=== PATIENT | female | born 1970 | race Caucasian/White ===

== ENCOUNTER 2020-11-10 15:02 | Outpatient (CLI) | payer OTHER, SELFPAY ==
--- NOTE | ~2020-11-10 | MM_ITS ---
EXAMINATION: MM screening [facility] BI w beck HISTORY: Screening TECHNIQUE: Craniocaudal and mediolateral oblique 3-D tomosynthesis images were obtained and synthetic 2-D images were generated. CAD analysis was submitted and interpreted. COMPARISON: Comparison to multiple prior studies sequentially, with oldest reviewed study dated 03/2015. BREAST PARENCHYMAL COMPOSITION: The breasts are extremely dense, which lowers the sensitivity of mamm ography. FINDINGS: There is a 1.4 cm new mass in the outer aspect of the left breast, best seen on CC tomograp hic image 23. The right breast is stable without evidence for malignancy. IMPRESSION: 1. New left breast mass, upper outer quadrant, measuring 1.4 cm. 2. Additional mammographic views and possible breast ultrasound are recommended. BI-RADS Category 0: Incomplete: Needs additional imaging evaluation. Reviewed, dictated and finalized at location A. KEN FANCIER IMPRESSION: 1. New left breast mass, upper outer quadrant, measuring 1.4 cm. 2. Additional mammographic views and possible breast ultrasound are recommended . BI-RADS Category 0: Incomplete: Needs additional imaging evaluation.
== END 2020-11-10 15:03 | disposition home or self-care (01) ==
LOC: ANHIMG 15:06
PROVIDERS: Visit Provider Physician Assistant
DX: Z12.31 Encounter for screening mammogram for malignant neoplasm of breast (principal); R92.8 Other abnormal and inconclusive findings on diagnostic imaging of breast
CPT/HCPCS: 77063; 77067

== ENCOUNTER 2021-01-09 11:48 | Outpatient (CLI) | payer OTHER, SELFPAY ==
--- NOTE | ~2021-01-09 | MMUS_ITS ---
EXAMINATION: MM diagnostic mammo unilat LT, US breast LT limited HISTORY: Left breast mass on screening mammogram TECHNIQUE: Additional 3-D tomosynthesis images of the left breast were performed and synthetic 2-D im ages were generated. CAD analysis was submitted and interpreted. High resolution limited left breast ultrasound was performed. COMPARISON: 11/10/2020, 07/02/2019, 06/02/2018 BREAST PARENCHYMAL COMPOSITION: The breasts are heterogeneously dense, which may obscure small masses . FINDINGS: MAMMOGRAPHIC FINDINGS: There is an obscured 1.2 cm low-density mass in the middle third of the outer breast at the 3:00 loca tion 3.5 cm from the nipple. ULTRASOUND: There is a 1.3 cm cyst at the 1:00 location 3 cm from the nipple corresponding to the mammographic fi nding in question. There is an adjacent 5 mm round, circumscribed, hypoechoic mass with posterior aco ustic enhancement at the 2:00 location 3 cm from the nipple. Similar appearing masses are present at the 2:00 location 4 cm from the nipple in the 3:00 location 3 cm from the nipple. IMPRESSION: 1. Simple cyst of left breast corresponding to the finding in question on recent screening mammogram. Additional probably benign masses are noted in the upper outer quadrant of the breast. 2. Recommend 6 month follow-up left diagnostic mammogram and ultrasound. BI-RADS category 3, probably benign findings. Reviewed, dictated and finalized at location A. IMPRESSION: 1. Simple cyst of left breast corresponding to the finding in question on recen t screening mammogram. Additional probably benign masses are noted in the upper outer quadrant of the breast. 2. Recommend 6 month follow-up left diagnostic mammogram and ultrasound. BI-RADS category 3, probably benign findings.
== END 2021-01-09 11:49 | disposition home or self-care (01) ==
LOC: ANHIMG 11:50
PROVIDERS: PCP Physician Assistant; Visit Provider Physician Assistant
DX: R92.8 Other abnormal and inconclusive findings on diagnostic imaging of breast (principal)
CPT/HCPCS: 76642; 77065

== ENCOUNTER 2021-10-12 13:35 | Outpatient (CLI) | payer OTHER, SELFPAY ==
--- NOTE | ~2021-10-12 | MMUS_ITS ---
EXAMINATION: MM diagnostic papa LT w beck, US breast LT limited HISTORY: Six-month follow-up TECHNIQUE: Additional 3-D tomosynthesis images of the left breast were performed and synthetic 2-D im ages were generated. CAD analysis was submitted and interpreted. High resolution Limited left breast ultrasound was performed. COMPARISON: Comparison to multiple prior studies sequentially, with oldest reviewed study dated 05/23. BREAST PARENCHYMAL COMPOSITION: The breasts are extremely dense, which lowers the sensitivity of mamm ography FINDINGS: MAMMOGRAPHIC FINDINGS: There are no suspicious masses, calcifications or architectural distortion in the left breast to sugg est malignancy. ULTRASOUND: Limited left breast ultrasound: At 1:00 near the nipple there is a 5 mm oval hypoechoic mass with enh anced through transmission and no internal vascularity, stable. At 1:00, 2 cm from the nipple, there is an oval hypoechoic mass measuring 5 mm without significant posterior features or internal vascular ity, stable. At 1:00, 3 cm from the nipple there is a stable 4 mm hypoechoic mass with similar featur es. At 2:00, 2 cm from the nipple there is a 4 mm oval hypoechoic mass is stable. At 3:00, 2 cm from the nipple there is a 2 mm cyst. At 3:00, 3 cm from the nipple there is a 4 mm cyst. IMPRESSION: 1. Stable likely benign left breast masses. 2. Recommend 6 month follow-up left breast ultrasound and bilateral mammogram. BI-RADS category 3, probably benign findings. Reviewed, dictated and finalized at location A. [employer] IMPRESSION: 1. Stable likely benign left breast masses. 2. Recommend 6 month follow-up left breast ultrasound and bilateral mammogram. BI-RADS category 3, probably benign findings.
== END 2021-10-12 13:36 | disposition home or self-care (01) ==
PROVIDERS: PCP Physician Assistant; Visit Provider Physician Assistant
DX: R92.8 Other abnormal and inconclusive findings on diagnostic imaging of breast (principal)
CPT/HCPCS: 76642; 77061; 77065; G0279

== ENCOUNTER 2022-12-17 14:00 | Outpatient (CLI) | payer OTHER, SELFPAY ==
--- NOTE | ~2022-12-17 | MM_ITS ---
EXAMINATION: MM screening [facility] BI w beck HISTORY: Screening TECHNIQUE: Craniocaudal and mediolateral oblique 3-D tomosynthesis images were obtained and synthetic 2-D images were generated. CAD analysis was submitted and interpreted. COMPARISON: Comparison to multiple prior studies sequentially, with oldest reviewed study dated 05/23. BREAST PARENCHYMAL COMPOSITION: The breasts are extremely dense, which lowers the sensitivity of mamm ography FINDINGS: There are scattered benign bilateral breast calcifications. There is no evidence of suspici ous mass, calcification, or architectural distortion to suggest malignancy in either breast. There denis s been no suspicious interval change. IMPRESSION: 1. No mammographic evidence of malignancy. 2. Recommend routine screening mammography in one year. BI-RADS Category 2: Benign finding(s). Reviewed, dictated and finalized at location A.
== END 2022-12-17 14:01 | disposition home or self-care (01) ==
LOC: ANHIMG 14:02
PROVIDERS: PCP Physician Assistant; Visit Provider Physician Assistant
DX: Z12.31 Encounter for screening mammogram for malignant neoplasm of breast (principal)
CPT/HCPCS: 77063; 77067

== ENCOUNTER 2023-12-12 14:50 | Outpatient (CLI) | payer BC, SELFPAY ==
--- NOTE | ~2023-12-12 | MM_ITS ---
EXAMINATION: MM screening papa BI w beck HISTORY: Screening TECHNIQUE: Craniocaudal and mediolateral oblique 3-D tomosynthesis images were obtained and synthetic 2-D images were generated. CAD analysis was submitted and interpreted. COMPARISON: Comparison to multiple prior studies sequentially, with oldest reviewed study dated 06/02. BREAST PARENCHYMAL COMPOSITION: Dense: The breasts are extremely dense, which lowers the sensitivity of mammography. FINDINGS: There is no evidence of suspicious mass, calcification, or architectural distortion to sugg est malignancy in either breast. There has been no suspicious interval change. IMPRESSION: 1. No mammographic evidence of malignancy. 2. Recommend routine screening mammography in one year. BI-RADS Category 1: Negative Reviewed, dictated and finalized at location A.
== END 2023-12-12 14:51 | disposition home or self-care (01) ==
PROVIDERS: PCP Physician Assistant; Visit Provider Physician Assistant
DX: Z12.31 Encounter for screening mammogram for malignant neoplasm of breast (principal)
CPT/HCPCS: 77063; 77067

== ENCOUNTER 2025-04-15 15:02 | Outpatient (CLI) | payer BC, SELFPAY ==
--- NOTE | ~2025-04-15 | MM_ITS ---
EXAMINATION: MM screening papa BI w beck HISTORY: Screening TECHNIQUE: Craniocaudal and mediolateral oblique 3-D tomosynthesis images were obtained and synthetic 2-D images were generated. CAD analysis was submitted and interpreted. COMPARISON: Comparison to multiple prior studies sequentially, with oldest reviewed study dated 11/10. BREAST PARENCHYMAL COMPOSITION: The breasts are extremely dense, which lowers the sensitivity of mamm ography. FINDINGS: There is no evidence of suspicious mass, calcification, or architectural distortion to sug gest malignancy in either breast. Scattered benign-appearing calcifications are present. IMPRESSION: 1. No mammographic evidence of malignancy. 2. Recommend routine screening mammography in one year. BI-RADS Category 2: Benign finding(s). Reviewed, dictated and finalized at location B.
--- OUTSIDE RECORDS SUMMARY | 2025-04-15 15:07 | XMS_ITS | Clinical Summary ---
Author Organization [facility] Address [facility] [place] [address] Care Team Providers Care Health Communications Specialist Name Role Phone Neela Jimenez Primary Care Provider [phone] Allergies No known active allergies Medications Multiple Vitamin (MULTIVITAMIN) capsule Take 1 capsule by mouth daily. Active Cyanocobalamin (VITAMIN B-12) 50 MCG Lozenge Nasal spray Act nelson amitriptyline (ELAVIL) 25 MG tabletIndicatio ns:Headache around the eyes Take 1 tablet (25 mg total) by mouth nightly at bedtime. 90 tablet 1 Active Additional Information Patient not taking.Reported on 04/12/2025 predniSONE (DELTASONE) 20 MG tabletIndicatio ns:Back pain with sciatica 2 pills once daily for 5 days then one pill daily for 5 days 15 tablet Active Active Problems Problem Noted Date Diagnosed Date Dizziness and giddiness 10/02/2021 Encounters Date Type Department Care Team Description 04/13/2025 Results Follow-Up [facility] Family & Internal Medicine - [place] [address] [place] [address] Neela Jimenez PA XR LUMB SPINE 3V 04/12/2025 3:30 PM CDT - 04/12/2025 11:59 PM CDT Hospital Encounter [facility] [address] [place] [address] Neela Jimenez PA Arrived Discharge Disposition: Home or Self Care (Routine Discharge) 04/12/2025 3:00 PM CDT Office Visit [facility] Family & Internal Medicine - [place] [address] [place] [address] Neela Jimenez PA Low Back Pain (Burning sensation to back radiates to sides of hips-weakness to legs-x 2 weeks) 04/12/2025 Travel 01/19/2025 Results Follow-Up [facility] [address] [place] [address] Neela Jimenez PA HEMOGLOBIN, GLYCOSYLATED, HEALTH FAIR WITH LIPID from Last 3 Months Immunizations Immunization Administration Dates Next Due Tdap (Generic) 03/23/2016 Family History Medical History Relation Comments Heart Disease Father Hypertension Father pneumonia Father COPD Mother Depression Mother Diabetes Mother Hypertension Mother Relation Status Comments Father Mother Alive Social History Tobacco Use Types Packs/Day Years Used Date Smoking Tobacco: Former Cigarettes Q uit: 09/23/1994 Passive Smoke Exposure: Past Smokeless Tobacco: Never Tobacco Cessation:Counseling Given: No Alcohol Use Standard Drinks/Week Comments Yes 0 (1 standard drink = 0.6 oz pur e alcohol) SOCIALLY PHQ-2 Answer Date Recorded Patient Health Questionnaire-2 Score 0 01/04/2023 Comments No Sex and Gender Information Value Date Recorded Sex Assigned at Female 10/15/2024 7:03 AM FUR VAULT ATTENDANT Legal Sex Female 8:27 PM CDT Gender Identity Not on file Sexual Orientation Not on file Last Filed Vital Signs Vital Sign Reading Time Taken Comments Blood Pressure 122/82 04/12/2025 2:55 PM CDT Pulse 82 04/12/2025 2:55 PM CDT Temperature 36.9 C (98.5 F) 04/12/2025 2:55 PM CDT Respiratory Rate 20 04/12/2025 2:55 PM CDT Oxygen Saturation 98% 04/12/2025 2:55 PM CDT Inhaled Oxygen Concentration - - Weight 56.7 kg (125 lb) 04/12/2025 2:55 PM CDT Height 161.3 cm (5' 3.5) 04/12/2025 2:55 PM CDT Body Mass Index 21.8 04/12/2025 2:55 PM CDT Plan of Treatment Health Maintenance Due Date Last Done Comments Hepatitis C 1989 Hepatitis B Vaccines (1 of 3 - 19+ 3-dose series) 1990 Pneumococcal Vaccine: 50+ Years (1 of 1 - PCV) 2021 Zoster Vaccines (1 of 2) 2021 COVID-19 Vaccine (1 - 2023- season) 2024 PHQ-2 (Physician [place]) 09/23/2024 Annual Physical 10/15/2025 10/15/2024, 08/23, 05/08/2021, Additional history exists Mammogram Screening 12/11/2025 12/12/2023, 12/17/2022, 10/12/2021, Additional history exists DTaP, Tdap and Td Vaccines (2 - Td or Tdap) 03/23/2026 03/23/2016 Cervical Cancer Screening Pap Smear (Age 30 to 64) Every 3 Years 10/15/2027 10/15/2024, 09/07/2022, 05/08/2021, Additional history exists Colorectal Cancer Screening FIT-DNA (3 Years) 11/28/2027 11/27/2024, 11/27/2024, 07/13/2021, Additional history exists Cervical Cancer Screening Pap with HPV Testing (Age 30 to 64) Every 5 Years 10/15/2029 10/15/2024, 09/07/2022, 05/08/2021, Additional history exists Cervical Cancer Screening with HPV 10/15/2029 Meningococcal B Vaccine Aged Out No l onger eligible based on patient's age to complete this topic Meningococcal Vaccine Aged Out No dangelo neris eligible based on patient's age to complete this topic RSV Immunizations Under 20 Months Aged Out No longer eligible based on patient's age to complete this topic Procedures Procedure Name Priority Date/Time Associated Diagnosis Comments XR LUMB SPINE 3V Routine 04/12/2025 4:02 PM CDT Back pain with sciatica VITAMIN D, 25 OH Routine 01/19/2025 12:1 0 AM CDT HEALTH FAIR WITH LIPID Routine 01/19/2025 12:10 AM CDT HEMOGLOBIN, GLYCOSYLATED Routine 01/19/2025 12:10 AM CDT COLOGUARD (EXACT SCIENCE) Routine 11/27/2024 8:20 AM FUR VAULT ATTENDANT Colon cancer screening THINPREP PAP W AGE BASED SCREENING PROTOCOLS Routine 10/15/2024 8:03 AM FUR VAULT ATTENDANT Cervical cancer screening MAMMOGRAM GENERIC (SCAN ORDER) 12/12/2023 from Last 3 Months or Most Recently Relevant to Health Maintenance Results * XR LUMB SPINE 3V (04/12/2025 4:02 PM CDT) Anatomical Region Laterality Modality Spine Radiographic Natasha ging 04/13/2025 8:33 AM CDT Impressions 04/13/2025 8:34 AM CDT IMPRESSION: Biconcave scoliosis is present. The curvature is greatest at the thoracolumbar junction. Ordered By: NEELA JIMENEZ Interpreted By: Gonzalo Dickinson MD, 04/13/2025 8:33 AM Narrative 04/13/2025 8:34 AM CDT [place] [address] [place] [address] Procedure(s): XR LUMB SPINE 3V Date of service: 04/12/2025 3:45 PM Provided clinical information: 55 years, Female, back pain with sciatica.burning pain down both hips. Procedure and materials: 3 views lumbar spine. Comparison studies: May 08, 2021. Findings: There is right concave scoliosis that is present involving the thoracolumbar junction and mild left concave scoliosis of lumbosacral junction. Lumbar vertebral body heights are maintained. Disc heights are relatively maintained. Slight straightening of the normal lumbar lordosis. Procedure Note Gonzalo Dickinson MD - 04/13/2025 [facility] [address] [facility] [place] [address] Procedure(s): XR LUMB SPINE 3V Date of service: 04/12/2025 3:45 PM Provided clinical information: 55 years, Female, back pain withsciatica.burning pain down both hips. Procedure and materials: 3 views lumbar spine. Comparison studies: May 08, 2021. Findings: There is right concave scoliosis that is present involving thethoracolumbar junction and mild left concave scoliosis of lumbosacraljunction. Lumbar vertebral body heights are maintained. Disc heights arerelatively maintained. Slight straightening of the normal lumbarlordosis. IMPRESSION: Biconcave scoliosis is present. The curvature is greatest at thethoracolumbar junction. Ordered By: NEELA JIMENEZ Interpreted By: Gonzalo Dickinson MD, 04/13/2025 8:33 AM Neela Jimenez [place] GENERAL IMAG[facility] Final Result * (ABNORMAL) HEALTH FAIR WITH LIPID (01/19/2025 12:10 AM CDT) WBC 4.92 4.4 - 11.0 x10'3/uL 01/19/2025 9:04 AM CDT [facility] RBC 4.88 4.50 - 5.10 x10'6/uL 01/19/2025 9:04 AM CDT [facility] HGB 14.2 12.3 - 15.3 G/DL 01/19/2025 9:04 AM CDT [facility] HCT 42.6 35.9 - 44.6 % 01/19/2025 9:04 AM CDT [facility] MCV 87.3 80.0 - 96.0 FL 01/19/2025 9:04 AM CDT [facility] MCH 29.1 25.3 - 30.9 PG 01/19/2025 9:04 AM CDT [facility] MCHC 33.3 31.0 - 34.1 G/DL 01/19/2025 9:04 AM CDT [facility] RDW 13.1 12.4 - 15.1 % 01/19/2025 9:04 AM T [facility] PLT 235 151 - 353 x10'3/uL 01/19/2025 9:04 AM [facility] MPV 9.9 9.6 - 12.0 FL 01/19/2025 9:04 AM T [facility] RBC MORPHOLOGY NORMAL 01/19/2025 9:04 AM [facility] PLT MORPH. NORMAL 01/19/2025 9:04 AM T [facility] WBC MORPHOLOGY NORMAL 01/19/2025 9:04 AM [facility] LYMPHOCYTES % 38.6 15.8 - 45.0 % 01/19/2025 9:04 AM [facility] NEUTROPHILS % 47.8 42.1 - 71.9 % 01/19/2025 9:04 AM [facility] MONOCYTES % 8.5 5.7 - 12.5 % 01/19/2025 9:04 AM [facility] EOSINOPHILS 3.7 0.0 - 5.6 % 01/19/2025 9:04 AM [facility] BASOPHILS 1.0 0.0 - 1.3 % 01/19/2025 9:04 AM [facility] ABS. NEUTROPHILS 2.35 1.40 - 6.00 x10'3/uL 01/19/2025 9:04 AM [facility] IMMATURE GRANS % 0.4 0.0 - 0.5 % 01/19/2025 9:04 AM [facility] ABS. LYMPHOCYTES 1.90 0.80 - 4.70 x10'3/uL 01/19/2025 9:04 AM [facility] GLUCOSE 85 70 - 99 MG/DL 01/19/2025 2:30 PM CDT [facility] BUN 24(H) 7 - 18 MG/DL 01/19/2025 2:30 PM [facility] CREATININE S/P/B 1.02 0.55 - 1.02 MG/DL 01/19/2025 2:30 PM T [facility] SODIUM S/P/B 141 136 - 145 MMOL/L 01/19/2025 2:30 PM T [facility] POTASSIUM S/P/B 3.8 3.5 - 5.1 MMOL/L 01/19/2025 2:30 PM T [facility] CHLORIDE S/P/B 102 100 - 108 MMOL/L 01/19/2025 2:30 PM T [facility] CO2 30.9 21 - 32 MMOL/L 01/19/2025 2:30 PM [facility] CALCIUM S/P/B 9.4 8.5 - 10.1 MG/DL 01/19/2025 2:30 PM T [facility] BILIRUBIN TOTAL S/P/B 1.0 0.2 - 1.2 MG/DL 01/19/2025 2:30 PM [facility] TOTAL PROTEIN S/P/B 7.3 6.4 - 8.2 G/DL 01/19/2025 2:30 PM [facility] ALBUMIN S/P/B 4.3 3.4 - 5.0 G/DL 01/19/2025 2:30 PM T [facility] AST 16 15 - 37 U/L 01/19/2025 2:30 PM [facility] ALT 18 14 - 55 U/L 01/19/2025 2:30 PM T [facility] ALKALINE PHOSPHATASE S/P/B 65 50 - 136 U/L 01/19/2025 2:30 PM [facility] ANION GAP 8.1 5 - 15 MMOL/L 01/19/2025 2:30 PM [facility] BUN CREATININE RATIO 23.5 6 - 26 01/19/2025 2:30 PM [facility] A/G RATIO 1.4 1.0 - 2.0 RATIO 01/19/2025 2:30 PM [facility] GFR ESTIMATE 66(L) >90 ML/MIN/1. 73 M2 01/19/2025 2:30 PM [facility] Comment: NOTE: eGFR is not calculated for patients <18 years of age. This is an estimated GFR calculation using the new CKD EPI creatinine equation without race and so does not require a correction factor for race. This estimated GFR should not be used for calculating drug doses. TSH 1.906 0.358 - 3.74 uIU/ML 01/19/2025 2:30 PM [facility] Comment: HIGH DOSES OF BIOTIN MAY INTERFERE WITH THIS TEST RESULT. CORRELATION TO CLINICAL HISTORY AND PRESENTATION RECOMMENDED. CHOLESTEROL 242(H) <200.0 MG/DL 01/19/2025 2:30 PM [facility] TRIGLYCERIDES 72 <150 MG/DL 01/19/2025 2:30 PM [facility] HDL 87 >40.0 MG/DL 01/19/2025 2:30 PM [facility] LDL (CALCULATED) 141(H) <100 MG/DL 01/19/2025 2:30 PM [facility] NON HDL CHOLESTEROL 155(H) <130 MG/DL 01/19/2025 2:30 PM [facility] CHOL/HDL RATIO 2.8 0.0 - 4.5 01/19/2025 2:30 PM [facility] VLDL CALCULATION 14 5 - 55 MG/DL 01/19/2025 2:30 PM CDT [facility] LIPID INTERPRETATION 01/19/2025 2:30 PM CDT [facility] Comment: NIH CONCENSUS REPORT RECOMMENDATIONS: ADULT CHILD LOW RISK: CHOLESTEROL <200 <170 TRIGLYCERIDE <150 --- HDL >=60 --- LDL <100 <110 BORDERLINE: CHOLESTEROL 200-239 170-199 TRIGLYCERIDE 150-199 --- HDL 40-59 --- LDL 100-159 110-129 HIGH RISK: CHOLESTEROL >=240 >=200 TRIGLYCERIDE >=200 --- HDL <40 --- LDL >=160 >=130 01/19/2025 12:1 0 AM CDT Tate Hernandez MD LABORATORY Final Result Performing Organization Address [facility] de Phone Number [facility] [address] [place] [address], [place] [phone] * HEMOGLOBIN, GLYCOSYLATED (01/19/2025 12:10 AM CDT) HGB A1C 5.2 <5.7 % 01/19/2025 11:06 AM CDT [facility] Comment: INCREASED RISK OF DIABETES <5.7% NON-DIABETES 5.7-6.4% INCREASED RISK FOR FUTURE DIABETES > OR = 6.5 CONSISTENT WITH DIABETES STANDARDS OF MEDICAL CARE IN DIABETES-2010 DIABETES CARE, 33(SUPP 1): S1-S61,2010 ESTIMATED AVG GLUCOSE 103 mg/dL 01/19/2025 11:06 AM CDT [facility] 01/19/2025 12:1 0 AM CDT Tate Hernandez MD LABORATORY Final Result Performing Organization Address [facility] Co de Phone Number [facility] [address] [place] [address], [place] [phone] * VITAMIN D, 25 OH (01/19/2025 12:10 AM CDT) VITAMIN D 25 HYDROXY S/P/B 54 30 - 100 NG/ML 01/19/2025 10:35 PM CDT [facility] Comment: INTERPRETATION DEFICIENT <20 INSUFFICIENT 20-29 SUFFICIENT 30-100 01/19/2025 12:1 0 AM CDT Taet Hernandez MD LABORATORY Final Result [facility] [address] [place] [address], * COLOGUARD (EXACT SCIENCE) (11/27/2024 8:20 AM FUR VAULT ATTENDANT) Pathologist [facility] COLOGUARD RESULT Negative Negative [facility] (CLIA #:[id number]) Comment: NEGATIVE TEST RESULT. A negative Cologuard result indicates a low likelihood that a colorectal cancer (CRC) or advanced adenoma (adenomatous polyps with more advanced pre-malignant features) is present. The chance that a person with a negative Cologuard test has a colorectal cancer is less than 1 in 1500 (negative predictive value >99.9%) or has an advanced adenoma is less than 5.3% (negative predictive value 94.7%). These data are based on a prospective cross-sectional study of 10,000 individuals at average risk for colorectal cancer who were screened with both Cologuard and colonoscopy. (Ajay Huynh al, N Engl J Med 2014;370(14):3883-2609) The normal value (reference range) for this assay is negative. COLOGUARD RE-SCREENING RECOMMENDATION: Periodic colorectal cancer screening is an important part of preventive healthcare for asymptomatic individuals at average risk for colorectal cancer. Following a negative Cologuard result, the [place] [employer] and U.S. Multi-Society Task Force screening guidelines recommend a Cologuard re-screening interval of 3 years. References: [place] [employer] Guideline for Colorectal Cancer Screening: https://www.cancer.org/cancer/nefpu-maofxr-iyarbx/jriiydvqp-wkcykzrhs-dcqupru/ac s-rec ommendations.html.; Charly DK, Jasper CR, Juan NievesK, Colorectal Cancer Screening: Recommendations for Physicians and Patients from the U.S. Multi-Society Task Force on Colorectal Cancer Screening , Am J Gastroenterology 2017; 112:7699-3768. TEST DESCRIPTION: Composite algorithmic analysis of stool DNA-biomarkers with hemoglobin immunoassay. Quantitative values of individual biomarkers are not reportable and are not associated with individual biomarker result reference ranges. Cologuard is intended for colorectal cancer screening of adults of either sex, 45 years or older, who are at average-risk for colorectal cancer (CRC). Cologuard has been approved for use by the U.S. FDA. The performance of Cologuard was established in a cross sectional study of average-risk adults aged 50-84. Cologuard performance in patients ages 45 to 49 years was estimated by sub-group analysis of near-age groups. Colonoscopies performed for a positive result may find as the most clinically significant lesion: colorectal cancer [4.0%], advanced adenoma (including sessile serrated polyps greater than or equal to 1cm diameter) [20%] or non- advanced adenoma [31%]; or no colorectal neoplasia [45%]. These estimates are derived from a prospective cross-sectional screening study of 10,000 individuals at average risk for colorectal cancer who were screened with both Cologuard and colonoscopy. (Ajay Valdes et al, N Engl J Med 2014;370(14):0508-1351.) Cologuard may produce a false negative or false positive result (no colorectal cancer or precancerous polyp present at colonoscopy follow up). A negative Cologuard test result does not guarantee the absence of CRC or advanced adenoma (pre-cancer). The current Cologuard screening interval is every 3 years. ([place] [employer] and U.S. Multi-Society Task Force). Cologuard performance data in a 10,000 patient pivotal study using colonoscopy as the reference method can be accessed at the following location: www.BIlprospekt.MinuteBuzz/results. Additional description of the Cologuard test process, warnings and precautions can be found at www.[employer]rd.com. STOOL STOOL SPECIMEN / Unknown 11/27/2024 8:20 AM FUR VAULT ATTENDANT 12/01/2024 9:24 AM CDT Neela MOORE BODY FLUIDS AND STOOLS ORDER NAVJOT Final Result [employer] ([employer] [address] [facility]) [address] [place] [address], [employer] (CLIA #:[id number]) [address] [place] [address] * THINPREP PAP W AGE BASED SCREENING (QUEST ONLY) (10/15/2024 8:03 AM FUR VAULT ATTENDANT) Comment: [facility] [place] Comment: This order for age-based cervical cancer and STI screening follows ACOG guidelines(PB 168, 140, JNB914). See individual assays for performing site location. CLINICAL INFORMATION: Postmenopausal [facility] [place] Clinical Information: [facility] [place] Date of Last Pap None given [place] Previous Biopsy? None given [place] SOURCE (QST) Endocervix [facility] [place] STATEMENT OF ADEQUACY: [place], [place] Comment: Satisfactory for evaluation. Endocervical/transformation zone component present. PAP INTERPRETATION/RES ULTS Cytology Results: Negative for intraepithelial lesion or malignancy. [place], [place] COMMENT: This Pap test has been evaluated with computer assisted technology. [facility] [place] PIE BOTTOMER QUE [employer] [place], [place] Comment: MMD, CT(ASCP) CT Screening Location: [place] [address] COMMENT: [facility] [place] Comment: EXPLANATORY NOTE: The Pap is a screening test for cervical cancer. It is not a diagnostic test and is subject to false negative and false positive results. It is most reliable when a satisfactory sample, regularly obtained, is submitted with relevant clinical findings and history, and when the Pap result is evaluated along with historic and current clinical information. HPV MRNA E6/E7 Not Detected Not Detected [facility] Comment: Methodology: Chute Worker-Mediated Amplification This assay detects E6/E7 viral messenger RNA (mRNA) from 14 high-risk HPV types (16,18,31,33,35,39,45,51,52,56,58,59,66,68). Cervical sources are required for HPV testing. If a vaginal source from a patient who has had a total hysterectomy with removal of cervix was submitted, please contact the testing laboratory for alternative testing options. For additional information, please refer to http://education.Vital [employer]nergi/faq/FKA968a0 (This link if provided for information/ educational purposes only.) 10/15/2024 8:03 AM FUR VAULT ATTENDANT 10/16/2024 2:17 AM FUR VAULT ATTENDANT Narrative Resulting Agency Comment Performing Organization Information: Site ID: [id number] Name: [facility] Address: [address] [place] [address] Director: Nick Gilmore MD Site ID: [id number] [facility] Address: [facility] [place] [address] Director: Nick Gilmore Neela MOORE PATHOLOGY/CYTOLOGY ORDERABLE S Final Result Performing Organization Address City/State/[facility] Co de Phone Number [facility] [address] [address], [facility] [address] [address] * MAMMOGRAM GENERIC (SCAN ORDER) (12/12/2023) Anatomical Region Laterality Modality Other 12/12/2023 [facility] Scanned SCANNING Final Resu lt from Last 3 Months or Most Recently Relevant to Health Maintenance Insurance [facility] Care Teams Health Communications Specialist Relationship Specialty [place] [address] [place] [address] PCP - General PHYSICIAN NETWORK ARCHITECT MANAGER 11/19/19
--- OUTSIDE RECORDS SUMMARY | 2025-04-15 15:07 | XMS_ITS | Encounter Summary ---
Author Organization [facility] Address [facility] [place] [address] Care Team Providers Care Electrical Manufacturing Technician Name Role Phone Neela Jimenez Primary Care Provider [phone] Encounter Details Date Type Department Care Team (Late st Contact Info) Description 05/21/[address] [facility] Family & Internal Medicine [facility] [id number] [place] [phone] [place] [address] [place] [address] Social History Tobacco Use Types Packs/Day Years Used Date Smoking Tobacco: Never Smokeless Tobacco: Never Alcohol Use Standard Drinks/Week Comments Yes 0 (1 standard drink = 0.6 oz pur e alcohol) SOCIALLY PHQ-2 Answer Date Recorded PHQ-2 Score - If the patient scores above 3, please move on to questions 3-9 0 01/23/2022 Comments No Sex and Gender Information Value Date Recorded Sex Assigned at Female 10/15/2024 7:03 AM PRINT PRODUCER Legal Sex Female 8:27 PM CDT Gender Identity Not on file Sexual Orientation Not on file documented as of this encounter Plan of Treatment Not on file documented as of this encounter Visit Diagnoses Diagnosis Headache around the eyes Headache documented in this encounter Additional Health Concerns Assessment Noted Time PHQ-9 Depression Total Score: 0 05/08/20 21 11:19 AM CDT documented as of this encounter Care Teams Electrical Manufacturing Technician Relationship Specialty [place] [address] [place] [address] PCP - General PHYSICIAN FISH ICER 11/19/19 documented as of this encounter
--- OUTSIDE RECORDS SUMMARY | 2025-04-15 15:07 | XMS_ITS | Encounter Summary ---
Author Organization [facility] Address [facility] [place] [address] Care Team Providers Care Stonecutter Name Role Phone Neela Jimenez Primary Care Provider [phone] Encounter Details Date Type Department Care Team (Late st Contact Info) Description 04/13/2025 Results Follow-Up [facility] Family & Internal Medicine [facility] [id number] [place] [phone] [place] [address] [place], [place] [id number] XR LUMB SPINE 3V Social History Tobacco Use Types Packs/Day Years Used Date Smoking Tobacco: Former Cigarettes Q uit: 09/23/1994 Passive Smoke Exposure: Past Smokeless Tobacco: Never Alcohol Use Standard Drinks/Week Comments Yes 0 (1 standard drink = 0.6 oz pur e alcohol) SOCIALLY PHQ-2 Answer Date Recorded Patient Health Questionnaire-2 Score 0 01/04/2023 Comments No Sex and Gender Information Value Date Recorded Sex Assigned at Female 10/15/2024 7:03 AM MANAGER GRAPHIC Legal Sex Female 8:27 PM CDT Gender Identity Not on file Sexual Orientation Not on file documented as of this encounter Plan of Treatment Not on file documented as of this encounter Visit Diagnoses Not on filedocumented in this encounter Additional Health Concerns Assessment Noted Time PHQ-9 Depression Total Score: 0 05/08/20 21 11:19 AM CDT documented as of this encounter Care Teams Stonecutter Relationship Specialty [place] [address] [place] [address] PCP - General PHYSICIAN STUDIO ARTIST 11/19/19 documented as of this encounter
== END 2025-04-15 15:03 | disposition home or self-care (01) ==
LOC: ANHIMG 15:05
PROVIDERS: PCP Physician Assistant; Visit Provider Physician Assistant
DX: Z12.31 Encounter for screening mammogram for malignant neoplasm of breast (principal)
CPT/HCPCS: 77063; 77067

== ENCOUNTER 2025-05-14 13:44 | Outpatient (CLI) | payer BC, SELFPAY ==
--- NOTE | ~2025-05-14 | US_ITS ---
EXAMINATION: US pelvic complete w TV INDICATION: Uterine cramping Comparison:No prior studies for comparison. TECHNIQUE: Multiple transabdominal and endovaginal sonographic images of the pelvis performed. FINDINGS: The uterus measures 6.9 x 3 x 3.4 cm. There is a small uterine fibroid posteriorly measuring 9 mm. The endometrial complex measures 3 mm. The right ovary measures 2.1 x 1.4 x 2.3 cm and the left ovary measures 2.4 x 1 x 2.5 cm. There are small follicles in each ovary. Normal doppler signal in both ovaries. There is no free fluid in the pelvis. There are no abnormal masses seen on either side. IMPRESSION: 1. Small uterine fibroid measuring 9 mm posteriorly. Reviewed, dictated and finalized at location O.
== END 2025-05-14 13:45 | disposition home or self-care (01) ==
LOC: MICIMG 13:45
PROVIDERS: PCP Physician Assistant; Visit Provider Physician Assistant
DX: N94.89 Other specified conditions associated with female genital organs and menstrual cycle (principal); D25.9 Leiomyoma of uterus, unspecified
CPT/HCPCS: 76830; 76856